=== PATIENT | male | born 1950 ===

== ENCOUNTER 2017-12-13 16:06 | Emergency (ER) | payer MEDICARE ==
[2017-12-13 16:10] VITALS: PULSE 82; RESP 18; TEMP 98.5; O2SAT 99
[2017-12-13] MEDS ORDERED: Sodium Chloride 0.9% 500 ML IV SCH ×2 (17:15→18:15)
[2017-12-13 17:35] LABS: URINE BACTERIA RARE (<OCC); URINE BILIRUBIN NEGATIVE (NEGATIVE); URINE BLOOD NEGATIVE (NEGATIVE); URINE CLARITY TURBID (Clear); URINE COLOR YELLOW (YELLOW); URINE GLUCOSE (UA) >=500 mg/dL (Normal); URINE LEUKOCYTE ESTERASE NEG Leu/uL (Negative); URINE NITRATE NEGATIVE (NEGATIVE); URINE PROTEIN NEGATIVE (NEGATIVE); URINE UROBILINOGEN 0.2-1.0 mg/dL (0.2-1.0)
[2017-12-13 17:36] LABS: BASO # 0.1 K/uL (0.0-0.2); BASO % 0.6 % (0.0-2.0); EOS % 0.3 % (0.0-4.0); HEMOGLOBIN 12.6 g/dL (12.0-18.0); LYMPH % 15.4 % (20.0-40.0); MEAN CELL VOLUME 86.6 fl (80.0-94.0); MEAN CORPUSCULAR HEMOGLOBIN 28.2 pg (27.0-31.0); MEAN CORPUSCULAR HGB CONC 32.6 g/dL (33.0-37.0); MEAN PLATELET VOLUME 10.2 fl (7.2-11.7); MONO # 0.9 K/uL (0.0-0.8); MONO % 6.7 % (0.0-10.0); NEUT # 9.9 K/uL (1.8-7.0); RBC 4.46 Mil/uL (4.40-5.90); RED CELL DISTRIBUTION WIDTH 13.5 % (11.5-14.5); WHITE BLOOD COUNT 12.8 K/uL (4.8-10.8)
[2017-12-13 17:51] LABS: ALB/GLOB RATIO 1.3 (1.0-2.1); ALBUMIN 4.3 g/dL (3.5-5.0); ALT/SGPT 48 U/L (21-72); AST/SGOT 38 U/L (17-59); BLOOD UREA NITROGEN 23 mg/dl (9-20); CALCIUM 9.8 mg/dL (8.4-10.2); GFR AFRICAN-AMERICAN > 60; GFR NON-AFRICAN AMERICAN > 60; LIPASE 126 U/L (23-300)
[2017-12-13] MEDS ORDERED: Insulin Regular 100 units/ml IV STA (18:06)
[2017-12-13] MEDS ORDERED: Insulin Regular 100 units/ml SC STA (18:07)
[2017-12-13 18:09] VITALS: BP 157/83
--- NOTE | 2017-12-13 18:23 | RAD ---
PROCEDURE: Radiographs of the chest and abdomen (obstructive series) HISTORY: pain, constipation COMPARISON: No prior. TECHNIQUE: AP radiograph of the chest, with upright and supine radiographs of the abdomen. FINDINGS: CHEST: Lungs: Clear. Cardiovascular: Normal size heart. No pulmonary vascular congestion. Pleura: No pleural fluid. No pneumothorax. Other findings: None. ABDOMEN AND PELVIS: Bowel: Gas seen is distending a few large bowel loops with air-fluid levels seen within what appears to be the ascending colon and transverse colon which may reflect diarrhea. Clinically correlate. Overall bowel gas pattern appears nonobstructive. Clinically correlate further. No abnormal intra-abdominal calcifications. Free air: None. Bones: Unremarkable. Other findings: None. IMPRESSION: No acute cardiopulmonary changes. Air-fluid levels in the right hemicolon and transverse colon suggests possible diarrhea. Clinically correlate. Nonobstructive bowel gas pattern.
--- NOTE | 2017-12-13 18:23 | ED PDOC ---
HPI: Abdomen Time Seen by Provider: 12/13/17 16:23 Chief Complaint (Nursing): Abdominal Pain Chief Complaint (Provider): Abdominal Pain History Per: Patient History/Exam Limitations: no limitations Onset/Duration Of Symptoms: Days Outside of [place] travel?: No Current Symptoms Are (Timing): Still Present Severity: None Location Of Pain/Discomfort: Diffuse Quality Of Discomfort: "Pain" Associated Symptoms: Nausea, Loss Of Appetite, Constipation. denies: Fever, Vomiting, Diarrhea Additional Complaint(s): 67 year old male presents to the ED complaining of abdominal pain associated with constipation x2 days. The patient reports that he took over the counter magnesium citrate and had 2 bowel movements yesterday. Otherwise denies nausea, vomiting, diarrhea, fever, melena, hematochezia. Patient has no prior history of abdominal surgery. Patient also reports decreased appetite and states that he has not taken his insulin for 2 days. He reports that he last took his metformin and lisinopril yesterday. Denies headache, dizziness, chest pain. PMD in [place] Past Medical History Reviewed: Historical Data, Nursing Documentation, Vital Signs Vital Signs: Last Vital Signs Temp 98.5 F 12/13/17 16:08 Pulse 82 12/13/17 16:08 Resp 18 12/13/17 16:08 BP 157/83 H 12/13/17 18:09 Pulse Ox 99 12/13/17 19:33 - Medical History PMH: HTN - Surgical History Surgical History: No Surg Hx - Family History Family History: States: Unknown Family Hx - Living Arrangements Living Arrangements: With Family - Social History Current smoker - smoking cessation education provided: No Ex-Smoker (has not smoked in the last 12 months): No Alcohol: None Drugs: Denies - Home Medications Home Medications: Ambulatory Orders Medication Instructions Recorded Polyethylene Glycol 3350 [Miralax] 17 pow PO DAILY #20 each 12/13/17 - Allergies Allergies/Adverse Reactions: Allergies Allergy/AdvReac Type Severity Reaction Status Date / Time No Known Allergies Allergy Verified 12/13/17 16:08 Review of Systems ROS Statement: Except As Marked, All Systems Reviewed And Found Negative Constitutional: Negative for: Fever Cardiovascular: Negative for: Chest Pain Gastrointestinal: Positive for: Nausea, Abdominal Pain, Constipation. Negative for: Vomiting, Diarrhea, Melena, Hematochezia Neurological: Negative for: Headache, Dizziness Physical Exam - Physical Exam Appears: Positive for: Non-toxic, No Acute Distress (AAO x3) Head Exam: Positive for: ATRAUMATIC, NORMAL INSPECTION, NORMOCEPHALIC Skin: Positive for: Normal Color, Warm, Dry. Negative for: Rash, Cyanosis Eye Exam: Positive for: Normal appearance, EOMI, PERRL. Negative for: Nystagmus , Conjunctival injection, Scleral icterus ENT: Positive for: Normal ENT Inspection (mucous membranes moist), Other ((-) tenderness, (-) stiffness, (-) lymphadenopathy.). Negative for: Nasal Congestion, Tonsillar Exudate, Tonsillar Swelling Neck: Positive for: Normal, Painless ROM, Supple Cardiovascular/Chest: Positive for: Regular Rate, Rhythm, Chest Non Tender. Negative for: Tachycardia Respiratory: Positive for: Normal Breath Sounds (breath sounds equal bilaterally.). Negative for: Rales, Rhonchi, Stridor, Wheezing, Respiratory Distress Gastrointestinal/Abdominal: Positive for: Normal Exam, Bowel Sounds, Soft, Other (, (-) palpable masses). Negative for: Tenderness, Distended Back: Positive for: Normal Inspection. 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 Negative for: Black Stool, Mass Extremity: Positive for: Normal ROM, Other ((-) edema, (+) distal pulses.). Negative for: Tenderness, Deformity, Swelling Neurologic/Psych: Positive for: Alert, Oriented, Other (Mental status as above; (-) focal findings.). Negative for: Gait - Laboratory Results Result Diagrams: 12/13/17 17:33 12/13/17 17:33 - ECG O2 Sat by Pulse Oximetry: 99 (RA) Pulse Ox Interpretation: Normal Medical Decision Making Medical Decision Makin Initial impression 67 y/o male presenting with abdominal pain Initial Plan: * CMP * Lipase * CBC * Obstructive Series * Huulin R 8 units * Humulin R 6 units * NS 500ml IV 500mls/hr * NS 500ml IV 150mls/hr * Pepcid 20mg IVP * Zofran 4mg IVP * Urine Culture * Urinalysis * Reevaluation Labs reviewed. Glucose is 393. Anion gap is normal. Patient medicated with IV insulin 8units and SC insulin 6 units. AXR : (+) few air fluid levels, (+) NSBGP, as read by PA. On re-evaluation, patient reports improvement of symptoms, denies any CP, nausea , abdominal pain, back pain, has no other complaints at this time. BP 157/83. On exam, patient remains AAOx3, in no acute distress. Lungs clear to auscultation, cardiac RRR, abdomen soft, non-tender, no rebound, no guarding. Repeat FS : 218. Diagnostic results d/w the patient in great detail. Diagnosis of abdominal pain and constipation d/w the patient. Advised to repeat FS tonight prior to going to bed and have a small snack. Based on history, exam and diagnostic results, plan will be for outpatient follow up with pmd. Patient instructed to follow-up with pmd in 1-2 days without fail. Advised to take medication as prescribed. Return to the emergency room at any time for any new or worsening symptoms. Patient states he fully agrees with and understands discharge instructions. States that he agrees with the plan and disposition. Verbalized and repeated discharge instructions and plan. I have given the patient opportunity to ask any additional questions. Documented by Bhargavi Leach acting as a scribe for Tabby Muller PA-C. All medical record entries made by the Scribe were at my direction and personally dictated by me. I have reviewed the chart and agree that the record accurately reflects my personal performance of the history, physical exam, medical decision making, and the department course for this patient. I have also personally directed, reviewed, and agree with the discharge instructions and disposition. Disposition - Clinical Impression Clinical Impression: Abdominal pain, Constipation - Patient ED Disposition Is Patient to be Admitted: No Counseled Patient/Family Regarding: Studies Performed, Diagnosis, Need For Followup, Rx Given - Disposition Disposition: Routine/Home Disposition Time: 19:30 Condition: IMPROVED Additional Instructions: Thank you for letting us take care of you today. You were treated for abdominal pain, constipation. The emergency medical care you received today was directed at your acute symptoms. If you were prescribed any medication, please fill it and take as directed. It may take several days for your symptoms to resolve. Return to the Emergency Department if your symptoms worsen, do not improve, or if you have any other problems. Please contact your doctor in 2 days for re-evaluation and follow up. Bring any paperwork you were given at discharge with you along with any medications you are taking to your follow up visit. Our treatment cannot replace ongoing medical care by a primary care provider (PCP) outside of the emergency department. Thank you for allowing the [facility] team to be part of your care today. Repeat FS tonight prior to going to bed. Have a small snack before going to bed. Prescriptions: Polyethylene Glycol 3350 [Miralax] 17 pow PO DAILY #20 each Instructions: Constipation, Adult (DC), Acute Abdomen (Belly Pain), Adult (DC) Forms: VANCL (Japanese) Print Language: ICELANDIC
== END 2017-12-13 20:46 | disposition home or self-care (01) ==
LOC: H.ER 16:06
DX: K59.00 Constipation, unspecified (principal); I10 Essential (primary) hypertension
CPT/HCPCS: 74022; 80053; 81003; 82948; 83690; 85025; 87086; 96361; 96374; 96375; 99282; J2405; J7040